=== PATIENT | male | born 1980 | race Caucasian/White ===

== ENCOUNTER 2016-08-09 12:03 | Emergency (ER) | payer OTHER | END 2016-08-09 15:20 | disposition home or self-care (01) | DX: M54.5 Low back pain (principal); F17.200 Nicotine dependence, unspecified, uncomplicated ==

== ENCOUNTER 2017-11-07 18:45 | Emergency (ER) | payer OTHER ==
[2017-11-07 18:54] VITALS: BP 141/85
--- NOTE | 2017-11-07 21:51 | ED Physician Documentation ---
PD HPI HEENT - Stated complaint Stated Complaint: SORE THROAT - Chief complaint Chief Complaint: Heent - History obtained from History obtained from: Patient - History of Present Illness Timing - onset: How many days ago (2) Timing - duration: Days (2) Timing - details: Gradual onset, Constant, Waxing and waning Pain level now: 6 Location: Throat Improves: Nothing Worsens: Swalllowing Associated symptoms: Congestion, Cough. No: Fever Similar symptoms before: Diagnosis (similar to previous episodes of strep throat ) Recently seen: Not recently seen Review of Systems Constitutional: denies: Fever, Chills, Sweats Ears: denies: Ear pain Nose: reports: Rhinorrhea / runny nose, Congestion Throat: reports: Sore throat Respiratory: reports: Cough. denies: Dyspnea PD PAST MEDICAL HISTORY - Past Medical History Cardiovascular: None Respiratory: None Neuro: None Endocrine/Autoimmune: None GI: None : Kidney stones Musculoskeletal: None Derm: None - Past Surgical History Past Surgical History: Yes - Present Medications Home Medications: Ambulatory Orders Medication Instructions Recorded Confirmed Amoxicillin 500 mg PO BID #19 capsule 11/07/17 - Allergies Allergies/Adverse Reactions: Allergies Allergy/AdvReac Type Severity Reaction Status Date / Time No Known Drug Allergies Allergy Verified 07/15/14 22:43 - Social History Does the pt smoke?: Yes Smoking Status: Current every day smoker Does the pt drink ETOH?: Yes Does the pt have substance abuse?: Yes - Immunizations Immunizations are current?: Yes - POLST Patient has POLST: No PD ED PE NORMAL - Vitals Vital signs reviewed: Yes - General General: Alert and oriented X 3, No acute distress, Well developed/nourished - HEENT HEENT: Moist mucous membranes - Neck Neck: Supple, no meningeal sign PD ED PE EXPANDED - HEENT HEENT: Pharyngeal erythema, Swollen tonsils, Tonsillar exudate Results - Vitals Vitals: Vital Signs - 24 hr 11/07/17 18:52 Temperature 37.2 C Heart Rate 108 H Respiratory 18 Rate Blood Pressure 141/85 H O2 Saturation 96 Oxygen O2 Source Room air - Labs Labs: Laboratory Tests 11/07/17 18:55 Group A Strep Rapid Negative PD MEDICAL DECISION MAKING - ED course Complexity details: reviewed results, considered differential, d/w patient Departure - Departure Disposition: 01 Home, Self Care Clinical Impression: Pharyngitis Qualifiers: Pharyngitis/tonsillitis etiology: unspecified etiology Qualified Code(s): J02.9 - Acute pharyngitis, unspecified Condition: Good Instructions: ED Strep Pharyngitis Poss Prescriptions: Amoxicillin 500 mg PO BID #19 capsule Discharge Date/Time: 11/07/17 22:12
[2017-11-07] MEDS ORDERED: DEXAMETHASONE 10 MG/ML VIAL PO STA (22:01)
[2017-11-07] MEDS ORDERED: AMOXICILLIN 250 MG CAPSULE PO STA (22:01)
[2017-11-07] MEDS ORDERED: CHERRY SYRUP 10 ML UDC PO ONE (22:19)
== END 2017-11-07 22:12 | disposition home or self-care (01) ==
LOC: ED 18:45
DX: J02.9 Acute pharyngitis, unspecified (principal); F17.200 Nicotine dependence, unspecified, uncomplicated
CPT/HCPCS: 87070; 87077; 87430; 99283; A9270

== ENCOUNTER 2018-01-24 12:42 | Emergency (ER) | payer OTHER ==
[2018-01-24 13:03] VITALS: BP 155/86
--- NOTE | 2018-01-24 13:48 | ED Physician Documentation ---
PD HPI UPPER EXT INJURY - Stated complaint Stated Complaint: RT HAND LAC - Chief complaint Chief Complaint: Fever - History obtained from History obtained from: Patient - History of Present Illness Location: Right, Hand (dorsum) Where injury occurred: Work Timing - onset: How many days ago (3) Timing - details: Abrupt onset, Still present (has gotten red and swollen yesterday and today; some drainage.) Improved by: Rest Worsened by: Moving, Palpating Associated symptoms: Swelling, Discolored (red). No: Weakness, Numbness Similar symptoms before: Has not had sx before Recently seen: Not recently seen Review of Systems Constitutional: reports: Chills, Myalgias (today). denies: Fever Nose: denies: Rhinorrhea / runny nose, Congestion Throat: denies: Sore throat Respiratory: denies: Cough GI: denies: Abdominal Pain, Nausea, Vomiting, Diarrhea : denies: Dysuria, Frequency Skin: reports: Laceration (s). denies: Rash Neurologic: denies: Focal weakness, Numbness, Near syncope PD PAST MEDICAL HISTORY - Past Medical History Past Medical History: Yes Cardiovascular: None Respiratory: None Endocrine/Autoimmune: None GI: None : Kidney stones Musculoskeletal: None Derm: None - Past Surgical History Past Surgical History: Yes Ortho: Other - Present Medications Home Medications: Ambulatory Orders Medication Instructions Recorded Confirmed Mupirocin 1 applic TP TID #15 oint...g. 01/24/18 Sulfamethox/Trimeth 800/160 1 each PO BID #14 tablet 01/24/18 [Bactrim Ds 800/160] - Allergies Allergies/Adverse Reactions: Allergies Allergy/AdvReac Type Severity Reaction Status Date / Time No Known Drug Allergies Allergy Verified 07/15/14 22:43 - Social History Does the pt smoke?: Yes Smoking Status: Current every day smoker Does the pt drink ETOH?: Yes Does the pt have substance abuse?: Yes - Immunizations Immunizations are current?: Yes - POLST Patient has POLST: No PD ED PE NORMAL - Vitals Vital signs reviewed: Yes - General General: Alert and oriented X 3, No acute distress, Well developed/nourished - HEENT HEENT: Pharynx benign - Neck Neck: Supple, no meningeal sign, No adenopathy - Cardiac Cardiac: RRR, No murmur - Respiratory Respiratory: Clear bilaterally - Derm Derm: Normal color, Warm and dry - Extremities Extremities: Other (dorsum right hand with 2 cm laceration to fatty tissue. Does not appear to go to tendons. Able to hold fingers straight without much pain. The wound does not have bovious FB in it. There is redness and swelling around ti and much of the dorsum hand. No redness, pain, tenderness in forearm. Mild clear/yellow drainage at the wound, culture obtained. ) - Neuro Neuro: No motor deficit, No sensory deficit Results - Vitals Vitals: Vital Signs - 24 hr 01/24/18 12:52 Temperature 37.7 C H Heart Rate 94 Respiratory 18 Rate Blood Pressure 155/86 H O2 Saturation 100 Oxygen O2 Source Room air - Labs Labs: Microbiology 01/24/18 14:21 Wound Culture - Preliminary Hand - Right PD MEDICAL DECISION MAKING - Sepsis Event Vital Signs: Vital Signs - 24 hr 01/24/18 12:52 Temperature 37.7 C H Heart Rate 94 Respiratory 18 Rate Blood Pressure 155/86 H O2 Saturation 100 Oxygen O2 Source Room air Departure - Departure Disposition: 01 Home, Self Care Clinical Impression: Wound infection Hand laceration Qualifiers: Encounter type: initial encounter Foreign body presence: without foreign body Laterality: right Qualified Code(s): S61.411A - Laceration without foreign body of right hand, initial encounter Condition: Stable Record reviewed to determine appropriate education?: Yes Instructions: ED Laceration Hand Prescriptions: Mupirocin 1 applic TP TID #15 oint...g. Sulfamethox/Trimeth 800/160 [Bactrim Ds 800/160] 1 each PO BID #14 tablet Comments: Cleanse the wound with soap and water or dilute peroxide and water 2-3 times a day and apply antibiotic ointment mupirocin. Take Bactrim oral antibiotic twice daily for a week. We did do a culture of the wound which will result in 2 -3 days and will tell us if there is a germ that needs a different antibiotic. Recheck if not improving over the next few days. Return if increasing redness and swelling in particular to the forearm or any vomiting or high fevers. Discharge Date/Time: 01/24/18 14:39
[2018-01-24] MEDS: SULFAMETH/TRIMETH DS 800/160 MG TABLET PO STA (14:34)
[2018-01-24] MEDS: MUPIROCIN 2% OINT 1 GM TOP STA (14:34)
== END 2018-01-24 14:39 | disposition home or self-care (01) ==
LOC: ED 12:42
DX: S61.411A Laceration without foreign body of right hand, initial encounter (principal); L08.9 Local infection of the skin and subcutaneous tissue, unspecified; W31.89XA Contact with other specified machinery, initial encounter; Y99.0 Civilian activity done for income or pay; F17.200 Nicotine dependence, unspecified, uncomplicated
CPT/HCPCS: 87070; 87181; 87205; 99283; A9270

== ENCOUNTER 2018-06-02 17:17 | Outpatient (CLI) | payer OTHER ==
[2018-06-02 17:33] LABS: BASOPHILS # (AUTO) 0.1 10^3/uL (0.0-0.1); BASOPHILS % (AUTO) 0.5 %; EOSINOPHILS % (AUTO) 0.4 %; HGB - HEMOGLOBIN 15.8 g/dL (14.0-18.0); LYMPHOCYTES # (AUTO) 2.7 10^3/uL (1.5-3.5); LYMPHOCYTES % (AUTO) 23.5 %; MEAN CORPUSCULAR HEMOGLOBIN 30.4 pg (27.0-31.0); MEAN CORPUSCULAR HGB CONC 34.1 g/dL (32.0-36.0); MEAN CORPUSCULAR VOLUME 89.1 fL (80.0-94.0); MEAN PLATELET VOLUME 7.5 fL (7.4-11.4); MONOCYTES # (AUTO) 0.7 10^3/uL (0.0-1.0); MONOCYTES % (AUTO) 6.4 %; NEUTROPHILS # (AUTO) 7.9 10^3/uL (1.5-6.6); NEUTROPHILS % (AUTO) 69.2 %; PLT - PLATELET COUNT 301 10^3/uL (130-450); RED BLOOD COUNT 5.18 10^6/uL (4.70-6.10); RED CELL DISTRIBUTION WIDTH 13.1 % (12.0-15.0); WHITE BLOOD COUNT 11.4 x10^3/uL (4.8-10.8)
[2018-06-02 17:42] LABS: ALBUMIN 5.1 g/dL (3.2-5.5); ALBUMIN/GLOBULIN RATIO 1.8 (1.0-2.2); BILIRUBIN,TOTAL 1.5 mg/dL (0.2-1.0); CALCIUM 9.6 mg/dL (8.5-10.3); CREATININE 0.8 mg/dL (0.6-1.2); TOTAL PROTEIN 7.9 g/dL (6.7-8.2)
== END 2018-06-02 17:18 | disposition home or self-care (01) ==
LOC: LAB 17:17
PROVIDERS: ATTEND Family Medicine
DX: R11.10 Vomiting, unspecified (principal)
CPT/HCPCS: 36415; 80053; 85025

== ENCOUNTER 2021-04-24 08:00 | Outpatient (CLI) | payer OTHER | END 2021-04-24 23:59 | disposition home or self-care (01) | LOC: LAB.N 08:00 | PROVIDERS: ATTEND Family Medicine | DX: R05 Cough (principal); Z20.822 Contact with and (suspected) exposure to COVID-19 ==

== ENCOUNTER 2021-06-08 17:56 | Outpatient (CLI) | payer OTHER ==
--- NOTE | 2021-06-08 22:06 | XRAY Report ---
PROCEDURE: Foot 3 View RT INDICATIONS: R FOOT PX TECHNIQUE: 3 views of the foot were acquired. COMPARISON: None FINDINGS: Bones: No fractures or dislocations. No suspicious bony lesions. Soft tissues: No tibiotalar joint effusion. Achilles tendon appears normal. IMPRESSION: No acute abnormality of the right foot. Reviewed by: Fabien Husain on 06/08/2021 10:05 PM [facility] Approved by: Fabien Husain on 06/08/2021 10:05 PM [facility] Station ID: [id number]
== END 2021-06-08 23:59 | disposition home or self-care (01) ==
LOC: DI.N 17:56
PROVIDERS: ATTEND Physician Assistant Medical
DX: S93.601A Unspecified sprain of right foot, initial encounter (principal)

== ENCOUNTER 2022-09-13 11:27 | Emergency (ER) | payer OTHER ==
[2022-09-13] MEDS ORDERED: LIDOCAINE 2%-EPI 1:100000 20 ML MDV SUBQ STA (13:19)
[2022-09-13] MEDS ORDERED: LIDOCAINE MPF 2%-EPI 1:200000 20 ML VIAL ONE (13:24)
[2022-09-13] MEDS ORDERED: SULFAMETH/TRIMETH DS 800/160 MG TABLET PO STA (13:44)
[2022-09-13] MEDS ORDERED: AMOX/CLAV 875 MG/125 MG TABLET PO STA (13:44)
[2022-09-13] MEDS ORDERED: LIDOCAINE MPF 2%-EPI 1:200000 20 ML VIAL SUBQ ONE (14:00)
--- NOTE | 2022-09-13 14:00 | ED Physician Documentation ---
History of Present Illness - Stated complaint Stated Complaint: L KNEE PX - Chief complaint Chief Complaint: Ext Problem - History obtained from History obtained from: Patient - History of Present Illness Timing: Other (1 month ago) Pain level max: 9 Pain level now: 7 - Additonal information Additional information: Patient is a 41-year-old male who presents to the emergency department with swelling and pain to the left knee x1 month. Went to the walk-in clinic and was sent here for evaluation. He states that he has had increased redness and swelling over the past several days. Subjective fevers at home. No vomiting. No cough. No congestion. Worse with movement, better with rest. No drainage. 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 Review of Systems Cardiac: denies: Chest pain / pressure Respiratory: denies: Cough GI: denies: Abdominal Pain, Vomiting, Diarrhea PD PAST MEDICAL HISTORY - Past Medical History Cardiovascular: None Respiratory: None Endocrine/Autoimmune: None GI: None : Kidney stones Musculoskeletal: None Derm: None - Past Surgical History Past Surgical History: Yes Ortho: Other - Present Medications Home Medications: Ambulatory Orders Medication Instructions Recorded Confirmed Mupirocin 1 applic TP TID #15 oint...g. 01/24/18 Sulfamethox/Trimeth 800/160 1 each PO BID #14 tablet 01/24/18 [Bactrim Ds 800/160] Amox/Clav 875/125 [Augmentin] 1 tab PO Q12H #20 tablet 09/13/22 Meloxicam [Mobic] 7.5 mg PO BID PRN #20 tablet 09/13/22 Oxycodone HCl/Acetaminophen 1 - 2 each PO Q6H PRN #14 tablet 09/13/22 [Percocet 5-325 mg Tablet] MDD 6 tabs Sulfamethox/Trimeth 800/160 1 each PO BID #14 tablet 09/13/22 [Bactrim Ds 800/160] - Allergies Allergies/Adverse Reactions: Allergies Allergy/AdvReac Type Severity Reaction Status Date / Time No Known Drug Allergies Allergy Verified 09/13/22 11:35 - Social History Does the pt smoke?: Yes Smoking Status: Current every day smoker Does the pt drink ETOH?: Yes Does the pt have substance abuse?: Yes - Immunizations Immunizations are current?: Yes - POLST Patient has POLST: No PD ED PE NORMAL - Vitals Vital signs reviewed: Yes - General General: Alert and oriented X 3, No acute distress - Derm Derm: Warm and dry - Extremities Extremities: Other (L knee - Swelling, erythema and tenderness to the superior aspect of the knee, prepatellar/suprapatellar. No joint involvement. Ambulating well. Neurovascular intact.) - Neuro Neuro: Alert and oriented X 3 Results - Vitals Vitals: Vital Signs - 24 hr 09/13/22 09/13/22 11:32 14:09 Temperature 37.7 C Heart Rate 134 H 74 Respiratory 16 16 Rate Blood Pressure 164/103 H 134/91 H O2 Saturation 99 98 Oxygen O2 Source Room air - Labs Labs: Microbiology 09/13/22 13:43 Body Fluid Culture - Preliminary Synovial Fluid Laboratory Tests 09/13/22 09/13/22 13:41 13:41 Fluid Source SYNOVIAL Fluid Color PINK Fluid Clarity TURBID Fluid WBC 873960 Fluid RBC 62683 Fluid Neutrophils % 97 Fluid Lymphocytes % 1 Fluid Macrophages % 2 Fld Mesothelial Cell % 0 Fluid Crystals NONE SEEN Procedures - Abscess I&D (location) Left knee Preparation: Chlorhexadine, Lidocaine 2%, With epi Incision: Needle aspiration (Approximately 15 cc of purulent fluid) Other: Pt tolerated well, Dressing applied, Antibiotic prescribed PD Medical Decision Making - ED course Complexity details: reviewed results, considered differential, d/w patient ED course: 41-year-old male presents to the emergency department with what appears to be a left knee prepatellar/suprapatellar bursitis. Patient is well-appearing, nontoxic. Afebrile. No hypoxia. No respiratory distress. Ambulating well. No evidence of septic joint. Approximately 15 cc of purulent material was removed. Tolerated well. We will place on Augmentin and Bactrim for home. We will have him follow-up with orthopedics for further care. Patient counseled regarding signs and symptoms for which I believe and urgent re-evaluation would be necessary. Patient with good understanding of and agreement to plan and is comfortable going home at this time This document was made in part using voice recognition software. While efforts are made to proofread this document, sound alike and grammatical errors may occur. Dr. Caraballo, orthopedics did stop and see the patient in the emergency department as well. Will follow-up in clinic Departure - Departure Disposition: 01 Home, Self Care Clinical Impression: Bursitis Qualifiers: Bursitis location: knee Knee bursitis location: suprapatellar bursitis Later ality: left Qualified Code(s): M70.52 - Other bursitis of knee, left knee Condition: Good Instructions: ED Bursitis Follow-Up: [facility]opedic [facility] [Provider Group] - Within 1 week Prescriptions: Amox/Clav 875/125 [Augmentin] 1 tab PO Q12H #20 tablet Sulfamethox/Trimeth 800/160 [Bactrim Ds 800/160] 1 each PO BID #14 tablet Meloxicam [Mobic] 7.5 mg PO BID PRN #20 tablet PRN Reason: Pain Oxycodone HCl/Acetaminophen [Percocet 5-325 mg Tablet] 1 - 2 each PO Q6H PRN #14 tablet MDD 6 tabs PRN Reason: pain Comments: Please call orthopedics for a follow-up visit. Please take all antibiotics until gone, even if you are feeling better. Please return if you worsen including worsening fevers, chills, vomiting, worsening redness or swelling. Forms: Activity restrictions Discharge Date/Time: 09/13/22 14:11
[2022-09-13 14:10] VITALS: BP 134/91
[2022-09-13 14:10] LABS: CC,BF WBC 313800 /mm^3
[2022-09-13 14:11] LABS: CC,BF RBC 60000 /mm^3
[2022-09-13 15:10] LABS: LYMPHOCYTES %,BODY FLUID 1 %; MACROPHAGES %,BODY FLUID 2 %; MESOTHELIAL %, BF 0 %
[2022-09-13 15:11] LABS: BF CLARITY TURBID; BF COLOR PINK; BF SOURCE SYNOVIAL; NEUTROPHILS %, BF 97 %
== END 2022-09-13 14:11 | disposition home or self-care (01) ==
LOC: ED 11:27
DX: M70.52 Other bursitis of knee, left knee (principal); F17.200 Nicotine dependence, unspecified, uncomplicated
CPT/HCPCS: 20610; 87070; 87181; 87205; 89051; 89060; 99284; A9270

== ENCOUNTER 2022-09-20 10:33 | Outpatient (CLI) | payer OTHER ==
--- NOTE | 2022-09-20 11:23 | XRAY Report ---
PROCEDURE: Knee 4 View LT INDICATIONS: LEFT KNEE PAIN TECHNIQUE: 4 views of the left knee were acquired. COMPARISON: None. FINDINGS: Bones: No acute fractures or dislocations. No suspicious bony lesions. Mild osseous narrowing of th e medial femorotibial compartment. Soft tissues: Trace joint effusion. No suspicious soft tissue calcifications. Moderate prepatellar subcutaneous soft tissue edema or prepatellar bursitis. IMPRESSION: 1.Moderate prepatellar bursal effusion or prepatellar soft tissue edema. 2.No acute osseous abnormality. If there is clinical concern or persistent symptoms, additional imagi ng such as repeat radiographs or advanced imaging (e.g. CT, MRI) may be helpful for further evaluatio n. Reviewed by: Marco Antonio Wren MD on 09/20/2022 11:22 AM PST Approved by: Marco Antonio Wren MD on 09/20/2022 11:22 AM PST Station ID: [id number]
== END 2022-09-20 10:34 | disposition home or self-care (01) ==
LOC: DI.WOS 10:33
PROVIDERS: ATTEND Orthopaedic Surgery
DX: M70.52 Other bursitis of knee, left knee (principal)

== ENCOUNTER 2023-06-27 10:31 | Emergency (ER) | payer OTHER ==
[2023-06-27 11:23] LABS: BASOPHILS % (AUTO) 0.3 %; EOSINOPHILS # (AUTO) 0.1 10^3/uL (0.0-0.7); EOSINOPHILS % (AUTO) 0.5 %; HCT - HEMATOCRIT 46.8 % (42.0-52.0); HGB - HEMOGLOBIN 16.3 g/dL (14.0-18.0); LYMPHOCYTES # (AUTO) 2.8 10^3/uL (1.5-3.5); LYMPHOCYTES % (AUTO) 20.5 %; MEAN CORPUSCULAR HEMOGLOBIN 31.2 pg (27.0-31.0); MEAN CORPUSCULAR HGB CONC 34.8 g/dL (32.0-36.0); MEAN CORPUSCULAR VOLUME 89.5 fL (80.0-94.0); MEAN PLATELET VOLUME 9.8 fL (7.4-11.4); MONOCYTES # (AUTO) 1.2 10^3/uL (0.0-1.0); MONOCYTES % (AUTO) 9.1 %; NEUTROPHILS # (AUTO) 9.3 10^3/uL (1.5-6.6); NEUTROPHILS % (AUTO) 69.1 %; PLT - PLATELET COUNT 293 10^3/uL (130-450); RED BLOOD COUNT 5.23 10^6/uL (4.70-6.10); RED CELL DISTRIBUTION WIDTH 12.1 % (12.0-15.0); WHITE BLOOD COUNT 13.5 x10^3/uL (4.8-10.8)
[2023-06-27 11:39] LABS: BILIRUBIN,TOTAL 1.6 mg/dL (0.2-1.0); CALCIUM 10.1 mg/dL (8.5-10.3); CREATININE 1.7 mg/dL (0.6-1.3); POTASSIUM 4.3 mmol/L (3.5-4.5); TOTAL PROTEIN 7.5 g/dL (6.4-8.9)
[2023-06-27] MEDS ORDERED: SODIUM CHLORIDE 0.9% 1,000 ML IV STA (12:46)
--- NOTE | 2023-06-27 12:47 | ED Physician Documentation ---
PD HPI ABD PAIN - Stated complaint Stated Complaint: LT SIDE/BACK PX - Chief complaint Chief Complaint: Abd Pain - History obtained from History obtained from: Patient - Additional information Additional information: 42-year-old gentleman with history of recurrent renal colic although his last episode was in 2005. He has required stone retrieval in the past. He has had left flank pain for 2 days and not eating or drinking well and vomiting. That said he declines any pain or nausea medicine initial evaluation. Says he is peeing less than normal but no other specific urinary complaints. No fevers. PD PAST MEDICAL HISTORY - Past Medical History Past Medical History: Yes Cardiovascular: None Respiratory: None Endocrine/Autoimmune: None GI: None : Kidney stones Musculoskeletal: None Derm: None - Past Surgical History Past Surgical History: Yes Ortho: Other - Present Medications Home Medications: Ambulatory Orders Medication Instructions Recorded Confirmed HYDROcod/ACETAM 5/325 [[place] 5/325] 1 - 2 tab PO Q6H PRN #15 tablet 06/27/23 - Allergies Allergies/Adverse Reactions: Allergies Allergy/AdvReac Type Severity Reaction Status Date / Time No Known Drug Allergies Allergy Verified 06/27/23 10:59 - Social History Does the pt smoke?: Yes Smoking Status: Current every day smoker Does the pt drink ETOH?: Yes Does the pt have substance abuse?: Yes - Immunizations Immunizations are current?: Yes - POLST Patient has POLST: No PD ED PE NORMAL - Vitals Vital signs reviewed: Yes - General General: Alert and oriented X 3, No acute distress - Respiratory Respiratory: No respiratory distress - Abdomen Abdomen: Soft, Non tender - Back Back: No CVA TTP - Neuro Neuro: Alert and oriented X 3 Results - Vitals Vitals: Vital Signs - 24 hr 06/27/23 06/27/23 06/27/23 10:56 13:00 14:51 Temperature 37.3 C Heart Rate 94 77 75 Respiratory 15 16 15 Rate Blood Pressure 148/101 H 163/120 H 140/103 H O2 Saturation 98 96 97 Oxygen O2 Source Room air - Labs Labs: Laboratory Tests 06/27/23 06/27/23 06/27/23 11:00 11:19 11:19 WBC 13.5 H RBC 5.23 Hgb 16.3 Hct 46.8 MCV 89.5 MCH 31.2 H MCHC 34.8 RDW 12.1 Plt Count 293 MPV 9.8 Neut # (Auto) 9.3 H Lymph # (Auto) 2.8 [place] # (Auto) 1.2 H Eos # (Auto) 0.1 Baso # (Auto) 0.0 Absolute Nucleated RBC 0.00 Nucleated RBC % 0.0 Sodium 135 Potassium 4.3 Chloride 100 L Carbon Dioxide 28 Anion Gap 7.0 BUN 18 Creatinine 1.7 H Estimated GFR (MDRD) 45 L Glucose 97 Calcium 10.1 Total Bilirubin 1.6 H AST 14 ALT 15 Alkaline Phosphatase 82 Total Protein 7.5 Albumin 5.0 Globulin 2.5 Albumin/Globulin Ratio 2.0 Lipase 23 Urine Color DARK YELLOW Urine Clarity CLEAR Urine pH 6.0 Ur Specific [place] >=1.030 H Urine Protein 100 H Urine Glucose (UA) NEGATIVE Urine Ketones 15 H Urine Occult Blood TRACE-INTA Urine Nitrite NEGATIVE Urine Bilirubin NEGATIVE Urine Urobilinogen 0.2 (NORMAL) Ur Leukocyte Esterase NEGATIVE Urine RBC 0-5 Urine WBC 4-5 Ur Squamous Epith Cells RARE Squamous Urine Bacteria Few Urine Mucus Few Strands Ur Microscopic Review INDICATED Urine Culture Comments NOT INDICATED - Rads (name of study) CT KUB Relevant Findings:: Final report received, EMP independent interpretation of test PD Medical Decision Making - ED course ED course: CBC notable for white count of 13.5, chemistry panel notable for creatinine of 1.7, his baseline is around 1. He presents with renal colic, has had a history of same. Has a very large stone in the left ureter and urologic follow-up was advised. Subsequently discharge the radiology report was noted with the left lower lobe pulmonary nodule. I called the patient by phone and discussed this and he understands and verbalizes back to me the need for repeat CT scanning in 3 months to evaluate for malign usha. Especially since he is a smoker. Initially did not want anything for pain but subsequently later did want some nonnarcotic analgesia and got good relief from 15 mg of IV Toradol. Departure - Departure Disposition: 01 Home, Self Care Clinical Impression: Renal colic Condition: Good Record reviewed to determine appropriate education?: Yes Instructions: ED Stone Renal W Colic Follow-Up: Gilbert Kumar MD [Provider Admit Priv/Credential] - Prescriptions: HYDROcod/ACETAM 5/325 [[place] 5/325] 1 - 2 tab PO Q6H PRN #15 tablet PRN Reason: Pain Comments: I sent your prescription electronically to [facility] in [place]. As discussed based on the size of the stone in the left ureter it is more likely than not that she will need to see a urologic specialist for removal of the kidney stone as it is unlikely albeit not impossible that she would pass it on your own. Call his office for next available follow-up appointment. Return for new or worsening symptoms. I am prescribing a short course of narcotic pain medication for you. These are potentially dangerous and addictive medications that should be used carefully. These medications may constipate you. Take an hxxc-cue-hqjclle stool softener (docusate) twice daily with plenty of water while taking these medications. If you go 24 hours without a bowel movement, take [id number] miralax, per package instructions. Do not drink or drive while taking these medications. If you received narcotic or sedating medications while in the emergency department, do not drive for 24 hours. Store this medication in a safe, secure place and out of reach of children. It is a violation of federal law to give or sell this medication to another person or to use in a manner other than prescribed. The ED will not refill narcotic prescriptions, including prescriptions lost or stolen. To dispose of unwanted medications: 1. [facility] provides a drop box for medication in pill form only (no liquids) 8:00 am to 4:30 p.m. Tuesday-Tuesday in the lobby of the [facility], [address] [place] [address]. Empty pills into ziplock bag before disposal. Call [phone] for information. 2.[employer] is a free service available to all [facility] residents. Go to [email or web address] Note that many narcotic pain relievers also contain Tylenol/acetaminophen. Please ensure that your total dose of acetaminophen from all sources does not exceed 3 g (3000 mg) per day. Forms: PCP List, Activity restrictions Discharge Date/Time: 06/27/23 14:56
[2023-06-27 13:29] LABS: GLUCOSE, URINE (UA) NEGATIVE (NEGATIVE); KETONES,URINE (UA) 15 mg/dL (NEGATIVE); LEUKOCYTE ESTERASE, URINE NEGATIVE (NEGATIVE); NITRITE,URINE NEGATIVE (NEGATIVE); OCCULT BLOOD,URINE TRACE-INTA (NEGATIVE); PROTEIN,URINE 100 mg/dL (NEGATIVE); UROBILINOGEN,URINE 0.2 (NORMAL) E.U./dL (NORMAL)
[2023-06-27 13:36] LABS: BILIRUBIN,URINE NEGATIVE (NEGATIVE); CLARITY,URINE CLEAR (CLEAR); ICTOTEST,URINE NEGATIVE
[2023-06-27] MEDS ORDERED: KETOROLAC 15 MG/ML VIAL IVP STA (13:42)
[2023-06-27 13:56] LABS: BACTERIA,URINE Few /HPF (None Seen); MUCUS,URINE Few Strands; RBC,URINE 0-5 /HPF (0-5); SQUAMOUS EPITHELIAL CELL,UR RARE Squamous (<= Few)
[2023-06-27 14:59] VITALS: BP 140/103; O2SAT 97
--- NOTE | 2023-06-27 15:06 | CT Report ---
PROCEDURE: ABDOMEN/PELVIS WO INDICATIONS: L flank pain TECHNIQUE: A CT scan of the abdomen and pelvis was performed without the use of intravenous contrast. Images we re recorded and evaluated at appropriate window settings. Reformats: coronal and sagittal. For radiat ion dose reduction, the following was used: automated exposure control, adjustment of mA and/or kV ac cording to patient size. COMPARISON: CT abdomen and pelvis on August 09, 2016. FINDINGS: Image quality: Excellent. Evaluation of the visceral organs is limited due to the lack of intravenous contrast Lung bases and heart: Left lower lobe pulmonary nodule versus nodular consolidation measuring 1 cm (2 /13). Liver: Noncirrhotic morphology. Gallbladder and biliary tree: Unremarkable. Spleen: A few scattered subcentimeter calcified granulomas, likely sequela of prior granulomatous inf ection. Pancreas: No pancreatic ductal dilation. Adrenals: No adrenal nodule. Kidneys and ureters: Obstructive nephrolith in the left proximal ureter measuring 1.1 x 0.8 cm with H o[place] unit of 1046. Moderate to severe upstream hydroureteronephrosis. Two left upper pole nonobs tructive nephroliths measuring 0.4 to 0.5 cm (2/22). Right lower pole nonobstructive nephrolith measu ring 0.3 cm (2/36). No right-sided hydronephrosis Bowel and peritoneum: No bowel distension. No pathologic free fluid. Normal appendix (2/54). No pneum atosis, pneumoperitoneum or portal venous gas. Lymph nodes: No central or retroperitoneal adenopathy. Vessels: No infrarenal aortic aneurysm. Normal scattered calcification of the abdominal aorta and branch vessels. PELVIS Reproductive organs: Unremarkable. Bladder: No wall thickness, accounting for underdistention. Pelvic lymph nodes: No pelvic adenopathy by size criteria. Bones: No acute fractures. No aggressive appearing lytic or blastic osseous lesions. Moderate degener ative changes of the spine, notably at L4-5 and L5-S1 with disc osteophyte complexes. Other: Small left fat-containing inguinal hernia IMPRESSION: 1.Obstructing nephrolith in the left proximal ureter measuring 1.1 x 0.8 cm with Hounsfield unit of 1 046 with moderate to severe upstream hydroureteronephrosis. 2.Left lower lobe pulmonary nodule versus nodular consolidation measuring [address] c hest in 3 months for further evaluation. 3.Bilateral nonobstructing nephroliths measuring up to 0.3 cm on the right and 0.5 cm on the left. Reviewed by: Dave Cardenas MD on 06/27/2023 3:04 PM PST Approved by: Dave Cardenas MD on 06/27/2023 3:04 PM PST Station ID: [id number]
== END 2023-06-27 14:56 | disposition home or self-care (01) ==
LOC: ED 10:31
DX: N13.2 Hydronephrosis with renal and ureteral calculous obstruction (principal); Z87.442 Personal history of urinary calculi; F17.200 Nicotine dependence, unspecified, uncomplicated; R91.1 Solitary pulmonary nodule
CPT/HCPCS: 36415; 80053; 81001; 81003; 83690; 85025; 87086; 96374; 99284

== ENCOUNTER 2023-07-11 11:44 | Day surgery (SDC) | payer OTHER ==
[~2023-07-11 11:44] MED LIST: ceFAZolin 2 GM VIAL ONE
[2023-07-11] MEDS ORDERED: LACTATED RINGERS 1,000 ML IV ONE ×2 (12:12→15:56)
[2023-07-11] MEDS ORDERED: ATROPINE ABBOJECT 1 MG/10 ML SYRINGE IVP PRN (13:38)
[2023-07-11] MEDS ORDERED: NALOXONE 0.4 MG/ML VIAL IVP PRN (13:38)
[2023-07-11] MEDS ORDERED: ONDANSETRON 4 MG/2 ML VIAL IVP PRN ×2 (13:38→15:36)
[2023-07-11] MEDS ORDERED: METOCLOPRAMIDE 10 MG/2 ML VIAL IVP PRN (13:38)
[2023-07-11] MEDS ORDERED: MORPHINE 2 MG/ML CARPUJECT IVP PRN (13:38)
[2023-07-11] MEDS ORDERED: ePHEDrine 50 MG/ML VIAL IVP PRN (13:38)
[2023-07-11] MEDS ORDERED: fentaNYL 100 MCG/2 ML VIAL IVP PRN (13:38)
[2023-07-11] MEDS ORDERED: HYDROmorphone 0.5 MG/0.5 ML SYRINGE IVP PRN (13:38)
--- NOTE | 2023-07-11 13:38 | ANESTHESIA ---
Pre-Anesthesia VS, & Labs - Diagnosis left kidney stone - Procedure left ureterscopy, lazer lithotripsy, stent Vital Signs: Temp Pulse Resp BP Pulse Ox O2 Flow Rate 37.1 C 93 15 132/91 H 97 0 07/11/23 12:12 07/11/23 12:12 07/11/23 12:12 07/11/23 12:12 07/11/23 12:12 07/11/23 12:12 Height: 6 ft 4 in Weight (kg): 111.1 kg Body Mass Index: 29.8 BMI Classification: Overweight - NPO >8 hours Home Medications and Allergies Allergies/Adverse Reactions: Allergies Allergy/AdvReac Type Severity Reaction Status Date / Time No Known Drug Allergies Allergy Verified 07/11/23 12:17 Anes History & Medical History - Anesthetic History Anesthesia Complications: reports: No previous complications - Medical History Cardiovascular: reports: None Pulmonary: reports: Other (pulmonary nodule noted on CT) Gastrointestinal: reports: None Urinary: reports: Kidney stones Musculoskeletal: reports: None Endocrine/Autoimmune: reports: None Blood Disorders: reports: None Skin: reports: None Smoking Status: Current every day smoker Psychosocial: reports: Cannabis (daily) - Surgical History Urologic: reports: Ureterolithotomy (stones) Orthopedic: reports: Other Exam General: Alert, Oriented x3 Dental: WNL Mouth Opening: Greater than 4 Fingerbreadths Neck Mobility: Normal Mallampati classification: I Respiratory: Lungs clear Cardiovascular: Regular rate Plan Anesthesia Type: General Consent for Procedure(s) Verified and Reviewed: Yes Code Status: Attempt Resuscitation ASA classification: 2-Mild systemic disease Is this case an emergency?: No
[2023-07-11] MEDS ORDERED: LACTATED RINGERS 1,000 ML IV SCH (14:00)
[2023-07-11] MEDS ORDERED: PROPOFOL 200 MG/20 ML VIAL IVP ONE (14:26)
[2023-07-11] MEDS ORDERED: fentaNYL 100 MCG/2 ML VIAL ONE (14:26)
[2023-07-11] MEDS ORDERED: ROCURONIUM 50 MG/5 ML VIAL ONE (14:26)
[2023-07-11] MEDS ORDERED: MIDAZOLAM 2 MG/2 ML VIAL ONE (14:26)
[2023-07-11] MEDS ORDERED: LIDOCAINE 2% URO-JET 5 ML SYRINGE UR ONE ×2 (14:39→15:24)
[2023-07-11] MEDS ORDERED: ONDANSETRON 4 MG/2 ML VIAL ONE (15:21)
[2023-07-11] MEDS ORDERED: DEXAMETHASONE 4 MG/ML VIAL ONE (15:21)
[2023-07-11] MEDS ORDERED: iohexoL-240 10 ML VIAL IVP ONE ×2 (15:21→15:23)
[2023-07-11] MEDS ORDERED: KETOROLAC 30 MG/ML VIAL ONE (15:31)
[2023-07-11] MEDS ORDERED: SUGAMMADEX 200 MG/2 ML VIAL IVP ONE (15:33)
[2023-07-11] MEDS ORDERED: HYDROcod/ACETAM 5/325 MG TABLET PO PRN (15:36)
--- NOTE | 2023-07-11 15:43 | Discharge Plan ---
Discharge Plan Problem Reviewed?: Yes Disposition: Home, Self Care Condition: Good Prescriptions: Docusate Sodium 100Mg Capsule [Colace 100Mg Capsule] 100 mg PO DAILY #14 cap cephALEXin [Keflex] 500 mg PO ONCE #1 cap HYDROcod/ACETAM 5/325 [[place] 5/325] 1 tab PO Q4H PRN #10 tablet PRN Reason: Pain Diet: Regular Activity Restrictions: No Restrictions Shower Restrictions: No Driving Restrictions: No Instruction Topics: Stents Ureteral Additional Instructions or Follow Up instructions: You will be contacted for follow-up in the next 2 to 3 weeks for cystoscopy and stent removal in the office No Smoking: If you smoke, Please STOP! Call for help.
--- NOTE | 2023-07-11 15:49 | OPERATIVE REPORT ---
Operative Report - General Procedure Date: 07/11/23 Planned Procedure: Cystoscopy, left ureteroscopy, laser lithotripsy and stent Pre-Op Diagnosis: Left ureteral stone Procedure Performed: Cystoscopy, left ureteroscopy, laser lithotripsy and stent Post Op Diagnosis: Left ureteral stone - Procedure Note Primary Surgeon: José Anesthesia Provider: DAVID Smith Anesthesia Technique: General LMA Findings: large left proximal moderately radioopaque stone in proximal ureter - Other Other Information/Narrative: After informed sent was obtained the patient was brought to the OR and laid in the supine position. At that point time the patient was [place] per anesthesia protocols. He was then placed in dorsolithotomy position and prepped and draped in usual sterile fashion. A formal timeout was performed reconfirming the patient, procedure and laterality. Fluoroscopy showed a large stone in the possible UPJ versus proximal ureter. The stone was about 1.2 cm in size it was mildly radio opaque. A 22 Nepali scope was [place] ease into urinary bladder bladder inspected full there are no masses lesions or other concerns a straight sensor wire was placed into the left ureter but it could not go past the stone. We then attempted to place a second wire and this again could not pass the stone. We tried to place a ureteroscope over the wire but it was too narrow and so using an 11/13 sheath we sequentially dilated the ureter. We then switched the sensor wire out for a Amplatz over stiff wire. We were then able to advance the flexible ureteroscope up to the stone. The stone was large and crystalline. It appeared to be almost growing into the ureteral mucosa. A retrograde pyelogram confirmed that we are in the proximal ureter. Using a 200 m laser fiber at a power of 1.2 and a rate of 8 we broke up the stone to small dust and fragments. Again there was some stone debris still attached to the wall of the ureter. But this was thought to be loosened somewhat. We could then advance to the kidney. The kidney showed moderate to severe hydronephrosis. No other stones were seen. We then cleared the ureter and there were no more large stones only dust and fragments. A 6 Nepali 26 cm double-J ureteral stent was placed with good curling on the kidney and good curling noted in the bladder. We emptied the bladder and placed a Uro-Jet. This concluded the procedure patient was brought to PACU without further incident he will follow-up in about 2 to 3 weeks time for stent removal.
--- NOTE | 2023-07-11 15:59 | ANESTHESIA POST OP EVALUATION ---
Anesthesia Post Eval - Post Anesthesia Eval Vitals: Last Vital Signs Temp 36.4 C L 07/11/23 15:55 Pulse 80 07/11/23 15:55 Resp 14 07/11/23 15:55 BP 138/93 H 07/11/23 15:55 Pulse Ox 98 07/11/23 15:55 O2 Flow Rate 0 07/11/23 12:12 CV Function Including HR & BP: Stable Pain Control: Satisfactory Nausea & Vomiting: Negative Mental Status: Baseline Respiratory Status: Airway Patent Hydration Status: Satisfactory Anesthesia Complications: None
[2023-07-11 16:49] VITALS: BP 140/100; O2SAT 98
--- NOTE | 2023-07-11 17:06 | XRAY Report ---
PROCEDURE: OR C-Arm Procedure INDICATIONS: LASER LITHOTRIPSY, STENT EXCHANGE FLUORO TIME: 0.5 TECHNIQUE: 2 intraoperative fluoroscopic images COMPARISON: None. FINDINGS: 2 intraoperative fluoroscopic images of the flank with wire instrumentation/stent are provided for no ndiagnostic interpretation. Please see operative report for details. Fluoroscopy time: 0.5 minutes Cumulative dose: 15.7 mGy IMPRESSION: Two intraoperative fluoroscopic images of the flank with wire instrumentation/stent are provided for nondiagnostic interpretation. Please see operative report for details. Reviewed by: Dave Cardenas MD on 07/11/2023 5:05 PM PST Approved by: Dave Cardenas MD on 07/11/2023 5:05 PM PST Station ID: [id number]
== END 2023-07-11 11:45 | disposition home or self-care (01) ==
LOC: SDS 11:44
PROVIDERS: ATTEND Urology
DX: N13.2 Hydronephrosis with renal and ureteral calculous obstruction (principal); F17.200 Nicotine dependence, unspecified, uncomplicated
CPT/HCPCS: 52356; C1758; C2617; J7120; Q9966